=== PATIENT | male | born 1940 | race Caucasian/White ===

== ENCOUNTER 2017-04-30 14:25 | Day surgery (SDC) | payer OTHER ==
[~2017-04-30 14:25] MED LIST: ACIP20TA19 PO; ADVA500A INH; BENI20TA25 PO; CARV12.52 PO; CLON0.5T PO; CLOP75 PO; GLUCTAB PO; LEXA5TAB PO; PROC60TA PO; ROSU10 PO; SPIRCAP INH; VITA-13 PO; WELL150T PO
[2017-04-30 15:00] VITALS: BP 148/75; PULSE 88; RESP 18; TEMP 97.3; O2SAT 94
[2017-04-30] MEDS ORDERED: ROSU1TAB6 PO (15:17)
[2017-04-30] MEDS ORDERED: SPIRCAP INH (15:17)
[2017-04-30] MEDS ORDERED: NIFE20 PO (15:17)
[2017-04-30] MEDS ORDERED: CLON0.5T PO (15:17)
[2017-04-30] MEDS ORDERED: VITA250T3 PO (15:17)
[2017-04-30] MEDS ORDERED: FINA1TAB16 (15:17)
[2017-04-30] MEDS ORDERED: CITA20TA4 PO (15:17)
[2017-04-30] MEDS ORDERED: METF500T PO (15:17)
[2017-04-30] MEDS ORDERED: PLAV75TA29 PO (15:17)
[2017-04-30] MEDS ORDERED: MILL5TAB2 PO (15:17)
[2017-04-30] MEDS ORDERED: CARV12.52 PO (15:17)
[2017-04-30] MEDS ORDERED: ALBU0.08 NEB (15:17)
[2017-04-30] MEDS ORDERED: OMEP40CA2 (15:17)
--- NOTE | 2017-04-30 15:51 | RADRPT ---
EXAM DATE/TIME: 04/30/2017 00:00 [facility] COMPARISON : No previous studies available for comparison. 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 MRI examination demonstrates L1 superior endplate fracture without significant compression deformity. He reports his pain as 10/10 with any movement. Denies any weakness, radiculopathy, bowel or urinar y incontinence.. PAST MEDICAL HISTORY : Carcinoma, squamous cell. Arthritis. Diabetes mellitus 2. Compression fracture. PAST SURGICAL HISTORY : Carotid endarterectomy. CABG Coronary artery stent. SOCIAL HISTORY : Penicillin Plavix (Clopidogrel Bisulfate) Rosuvastatin albuterol Carvedilol citalopram Clonazepam Finasteride Metformin Nifedipine Omeprazole Prednisolone PHYSICAL EXAMINATION: General: No acute distress. Neuro: Grossly intact Back: Significant tenderness on palpation of the L1 spinous process. IMAGING STUDIES: MRI examination is reviewed. This confirms superior endplate fracture at L1 without significant compr ession deformity with pulmonary edema. No central canal stenosis or retropulsed fragments. ASSESSMENT: 77-year-old male on chronic steroid treatment with acute uncomplicated debilitating L1 compression fr acture. Extensive discussion regarding treatment options including cement augmentation and nonoperative manag ement. All questions were answered. PLAN: Tentative plan for cement augmentation. TIME SPENT: 20 minutes Twan Blount MD on April 30, 2017 at 15:43 Board Certified Radiologist. This report was verified electronically.
== END 2017-04-30 15:45 | disposition home or self-care (01) ==
LOC: HROP 14:25 → HRIP 14:29 → HROP 15:45
PROVIDERS: ATTEND Internal Medicine
DX: M48.56XA Collapsed vertebra, not elsewhere classified, lumbar region, initial encounter for fracture (principal)

== ENCOUNTER 2017-05-09 10:09 | Day surgery (SDC) | payer OTHER ==
[~2017-05-09] VITALS: Ht 185.4 cm; Wt 87.3 kg
[~2017-05-09 10:09] MED LIST changes: -ACIP20TA19 PO; -ADVA500A INH; +ALBU0.08 NEB; -BENI20TA25 PO; +CITA20TA4 PO; -CLOP75 PO; +FINA1TAB16; -GLUCTAB PO; -LEXA5TAB PO; +METF500T PO; +MILL5TAB2 PO; +NIFE20 PO; +OMEP40CA2; +PLAV75TA29 PO; -PROC60TA PO; -ROSU10 PO; +ROSU1TAB6 PO; -VITA-13 PO; +VITA250T3 PO; -WELL150T PO
[2017-05-09] MEDS ORDERED: IOHEXOL 300 MG/ML 50 ML BTL (for RAD DIAG) OTHER ONE (10:10)
[2017-05-09 10:32] VITALS: BP 147/81; PULSE 83; RESP 18; TEMP 98; O2SAT 92
[2017-05-09] MEDS ORDERED: INSULIN HUMAN REGULAR 1,000 UNITS/10 ML VIAL SQ PRN (11:00)
[2017-05-09] MEDS ORDERED: POVIDONE IODINE 5% (ANTISEPSIS KIT) 4 APPLICATIONS EACH NARE PRN (11:00)
[2017-05-09] MEDS ORDERED: SODIUM CHLORID 0.9% 500 ML IV PRN (11:00)
[2017-05-09] MEDS ORDERED: LACTATED RINGER'S 1000 ML IV PRN (11:00)
[2017-05-09] MEDS ORDERED: CHLORHEXIDINE GLUCONATE 2 % 1 PACK (2 CLOTHS) TOPICAL PRN (11:00)
[2017-05-09] MEDS ORDERED: METOPROLOL TARTRATE 25 MG TAB PO PRN (11:00)
[2017-05-09] MEDS ORDERED: SODIUM CHLOR 0.9% 1000 ML INJ 1,000 ML IV SCH (11:00)
[2017-05-09 11:24] LABS: AUTOMATED NEUTROPHIL # 5.9 TH/MM3 (1.8-7.7); BASOPHIL # 0.1 TH/MM3 (0-0.2); BASOPHIL % 1.1 % (0.0-2.0); EOSINOPHIL # 0.1 TH/MM3 (0-0.4); EOSINOPHIL % 1.3 % (0.0-4.0); HEMATOCRIT 42.2 % (39.0-51.0); HEMOGLOBIN 14.7 GM/DL (13.0-17.0); MEAN CELL VOLUME 99.7 FL (80.0-100.0); MEAN CORPUSCULAR HEMOGLOBIN 34.6 PG (27.0-34.0); MEAN CORPUSCULAR HGB CONC 34.7 % (32.0-36.0); MEAN PLATELET VOLUME 7.9 FL (7.0-11.0); MONO % 9.7 % (0.0-8.0); MONOCYTE # 0.9 TH/MM3 (0-0.9); NEUT % 65.9 % (16.0-70.0); PLATELET COUNT 296 TH/MM3 (150-450); RED BLOOD COUNT 4.23 MIL/MM3 (4.50-5.90); RED CELL DISTRIBUTION WIDTH 13.4 % (11.6-17.2)
[2017-05-09 11:32] LABS: INTERNATIONAL NORMALIZED RATIO 1.1 RATIO; PROTHROMBIN TIME - PATIENT 11.1 SEC (9.8-11.6)
[2017-05-09 11:37] LABS: BICARBONATE 29.6 MEQ/L (21.0-32.0); CALCIUM 9.1 MG/DL (8.5-10.1); CREATININE 0.78 MG/DL (0.60-1.30)
[2017-05-09] MEDS ORDERED: MIDAZOLAM HCL 2 MG/2 ML VIAL ONE ×2 (12:17→13:13)
[2017-05-09] MEDS ORDERED: LEVOFLOXACIN 500 MG PREMIX INJ 100 ML IV ONE (12:43)
[2017-05-09] MEDS ORDERED: BUPIVACAINE HCL PF 0.75% 30 ML VIAL ONE (12:52)
[2017-05-09 13:45] VITALS: BP 152/80; PULSE 100; RESP 16; TEMP 97.5; O2SAT 97
--- NOTE | 2017-05-09 13:50 | PD.RAD ---
Post Procedure Progress Note Pre Procedure Diagnosis: (1) Compression fracture of L1 lumbar vertebra Post Procedure Diagnosis: (1) Compression fracture of L1 lumbar vertebra Procedure Date: May 09, 2017 Supervising Radiologist: Deric Ingram JR Proceduralist/Assist: Ruben Santos, RT(R), Carol Agarwal RT(R) Anesthesia: Other Plan of Activity Patient to Unit: [facility] Patient Condition: Good See PACS Report for procedural detail/treatment Spinal Procedure Kyphoplasty L1 Findings: Successful L1 kyphoplasty via left unilateral approach. Plan F/U with IR in 2-3 weeks Jr. Juan Jose,Deric Lopez MD May 09, 2017 13:50
[2017-05-09 14:00] VITALS: BP 135/75; PULSE 88; RESP 16; O2SAT 96
[2017-05-09 14:30] VITALS: BP 121/79; PULSE 83; RESP 16; O2SAT 95
--- NOTE | 2017-05-09 14:33 | RADRPT ---
EXAM DATE/TIME: 05/09/2017 12:25 [facility] COMPARISON: No previous studies available for comparison. INDICATIONS : Patient presents with compression fracture of first lumbar verterbral body in need of kyphoplasty. Alejandro yeh fell 3 weeks ago. Failing medical management. MEDICAL HISTORY : Compression fracture Carcinoma, squamous cell Arthritis Diabetes mellitus 2 COPD High cholesterol Chronic pain Anxiety Osteoarthritis Resting tremor BPH SURGICAL HISTORY : Carotid endarterectomy CABG Coronary aretery stent ENCOUNTER: Initial ACUITY: 3 weeks PAIN SCORE: 0/10 LOCATION: N/A FLUORO TIME: 7.5 minutes IMAGE SERIES: 7 CONTRAST: 10 cc Omni 300 LEVEL: L1 DEVICE: 1. 6 cc AVAMax bone cement Anesthesia and pain control was provided by the Anesthesia department. PROCEDURE : 1. Fluoroscopically-guided kyphoplasty. 2. Conscious sedation with continuous EKG and oximetry monitoring. The risks, benefits and alternatives to the procedure were explained and verbal and written consent w as obtained. The site was prepped in sterile fashion. Full sterile technique was used, including ca p, mask, sterile gloves and gown and a large sterile sheet. Hand hygiene and 2% chlorhexidine and/or betadine/alcohol prep was utilized per protocol for cutaneous antisepsis. The skin and subcutaneous tissues were infiltrated with local anesthetic solution. With fluoroscopic guidance via a left unilateral transpedicular approach access was gained to the L1 vertebral body. Kyphoplasty was performed with cavity creation utilizing a balloon as well as a curv ed needle. The prescribed cement volume was placed under direct fluoroscopic guidance. Post procedu re images demonstrate cement confined to the vertebral body. Anesthesiology was present for sedation. EKG and oximetry remained stable throughout the procedure. The patient tolerated the procedure well and there were no complications. The patient was sent to [facility] anesthesia recovery in stable condition. CONCLUSION: Uncomplicated L1 kyphoplasty as above. Deric Ingram Jr., MD on May 09, 2017 at 14:28 Board Certified Radiologist. This report was verified electronically.
[2017-05-09 15:00] VITALS: BP 123/76; PULSE 86; RESP 16; O2SAT 95
--- NOTE | 2017-05-09 16:40 | EKG ---
Date Performed: 05/09/2017 Time Performed: 10:51:30 PTAGE: 77 years EKG: Sinus rhythm NORMAL ECG PREVIOUS TRACING : 11/14/2011 07.25 Since the previous tracing, no significant change noted DOCTOR: Jaren Kaiser Interpretating Date/Time 05/09/2017 16:38:34
== END 2017-05-09 16:55 | disposition home or self-care (01) ==
LOC: HROP 10:09 → HRIP 10:12 → HROP 16:55
PROVIDERS: ATTEND Internal Medicine
DX: S32.010A Wedge compression fracture of first lumbar vertebra, initial encounter for closed fracture (principal); Z95.1 Presence of aortocoronary bypass graft; E11.9 Type 2 diabetes mellitus without complications; J44.9 Chronic obstructive pulmonary disease, unspecified; E78.00 Pure hypercholesterolemia, unspecified; G89.29 Other chronic pain; F41.9 Anxiety disorder, unspecified; M19.90 Unspecified osteoarthritis, unspecified site; N40.0 Benign prostatic hyperplasia without lower urinary tract symptoms; Z79.84 Long term (current) use of oral hypoglycemic drugs; Z79.01 Long term (current) use of anticoagulants; Z79.899 Other long term (current) drug therapy
CPT/HCPCS: 01936; 22514; 80048; 85025; 85610; 85730; 93005; J1956; J2250; J3010; J7030; Q9967

== ENCOUNTER 2017-05-29 13:26 | Day surgery (SDC) | payer OTHER | END 2017-05-29 14:10 | disposition home or self-care (01) | LOC: HROP 13:26 → HRIP 13:30 → HROP 14:10 | PROVIDERS: ATTEND Radiology Body Imaging | DX: S32.010D Wedge compression fracture of first lumbar vertebra, subsequent encounter for fracture with routine healing (principal) ==